=== PATIENT | female | born 1995 | race Hispanic/Latino ===

== ENCOUNTER 2017-08-02 17:02 | Emergency (ER) | payer MEDICAID ==
[2017-08-02 17:58] LABS: HCG,QUAL RESULT NEGATIVE (NEGATIVE)
[2017-08-02 17:59] LABS: APPEARANCE,URINE SLIGHTLY CLOUDY (CLEAR); BILIRUBIN,URINE Negative (NEGATIVE); COLOR,URINE Yellow (YELLOW); GLUCOSE, URINE (UA) Negative (NEGATIVE); KETONES,URINE Negative (NEGATIVE); LEUKOCYTE ESTERASE ,URINE Negative (NEGATIVE); NITRATE,URINE Negative (NEGATIVE); OCCULT BLOOD,URINE Large (NEGATIVE); PH,URINE 5.5 (5.0-8.0); PROTEIN,URINE Negative (NEGATIVE)
[2017-08-02 18:05] LABS: BACTERIA,URINE None Seen /HPF (None Seen); MUCUS,URINE Many LPF (None Seen); RBC,URINE 26-50 /HPF (0-1); SQUAMOUS EPITHELIAL CELL,UR 0-2 /LPF (0-2); WBC,URINE None Seen /HPF (0-1)
[2017-08-02 18:16] LABS: RAPID GROUP A STREP NEGATIVE (NEGATIVE)
== END 2017-08-02 18:29 | disposition home or self-care (01) ==
LOC: EDH 17:02
DX: B34.9 Viral infection, unspecified (principal); R50.81 Fever presenting with conditions classified elsewhere; J45.909 Unspecified asthma, uncomplicated; Z98.890 Other specified postprocedural states
CPT/HCPCS: 81001; 81025; 87804; 87880

== ENCOUNTER 2020-03-09 18:03 | Observation (INO) | payer MEDICAID ==
[~2020-03-09] VITALS: Ht 157.5 cm; Wt 74.8 kg
[2020-03-09] MEDS ORDERED: LIDOCAINE HCL 1% 20 ML VIAL ONE (18:16)
[2020-03-09] MEDS ORDERED: CEFAZOLIN SODIUM 1 GM VIAL ONE (19:02)
[2020-03-09] MEDS ORDERED: SODIUM CHLORIDE 0.9% 100 ML IV ONE (19:03)
[2020-03-09] MEDS ORDERED: ACETAMINOPHEN EXTRA STRENGTH 500 MG TABLET ONE ×2 (19:03→19:09)
[2020-03-09] MEDS ORDERED: ACETAMINOPHEN-CODEINE 300/30MG TAB PO PRN ×2 (20:00)
[2020-03-09 23:09] LABS: APPEARANCE,URINE Clear (CLEAR); BILIRUBIN,URINE Negative (NEGATIVE); COLOR,URINE Yellow (YELLOW); GLUCOSE, URINE (UA) Negative (NEGATIVE); KETONES,URINE Trace mg/dL (NEGATIVE); LEUKOCYTE ESTERASE ,URINE Negative (NEGATIVE); NITRATE,URINE Negative (NEGATIVE); OCCULT BLOOD,URINE Negative (NEGATIVE); PH,URINE 6.5 (5.0-8.0); PROTEIN,URINE Negative (NEGATIVE)
[2020-03-09 23:10] LABS: HCG,QUAL RESULT NEGATIVE (NEGATIVE)
[2020-03-10] VITALS (22 sets, daily range): BP systolic 95–125; BP diastolic 52–76
[2020-03-10] MEDS ORDERED: CEFAZOLIN SODIUM 1 GM VIAL ONE (00:48)
[2020-03-10] MEDS: MORPHINE SULFATE 2 MG/ML 1ML SYG IVP PRN ×3 (00:51→17:01)
[2020-03-10] MEDS: CEFAZOLIN SODIUM 1 GM VIAL IVP SCH ×2 (03:31→10:42)
[2020-03-10 05:46] LABS: HEMATOCRIT 34.2 % (36-48); MEAN CORPUSCULAR HEMOGLOBIN 27.8 pg (27.0-33.0); MEAN CORPUSCULAR HGB CONC 32.2 g/dL (32.0-36.0); MEAN CORPUSCULAR VOLUME 86.4 fL (79-99); RED BLOOD CELL COUNT(AUTO) 3.96 MIL/uL (4.00-5.50); RED CELL DISTRIBUTION WIDTH 13.8 % (11.0-15.5); WHITE BLOOD COUNT (AUTO) 7.6 K/uL (4.8-10.8)
[2020-03-10 05:57] LABS: INR 0.93 (0.85-1.15); PARTIAL THROMBOPLASTIN TIME 27.1 SEC (26.3-35.5); PROTHROMBIN TIME 10.1 SEC (9.6-11.6)
[2020-03-10 05:59] LABS: CREATININE 0.8 mg/dL (0.5-1.5); POTASSIUM 3.5 mmol/L (3.5-5.1)
[2020-03-10] MEDS ORDERED: LIDOCAINE PF 2% 5ML ABBOJECT ONE (13:15)
[2020-03-10] MEDS ORDERED: MIDAZOLAM HCL 1 MG/ML 2ML VIAL ONE (13:15)
[2020-03-10] MEDS ORDERED: PROPOFOL 10 MG/ML 20ML VIAL IV ONE ×2 (13:15→14:17)
[2020-03-10] MEDS ORDERED: ONDANSETRON HCL 4 MG/2 ML VIAL ONE (13:16)
[2020-03-10] MEDS ORDERED: FENTANYL CITRATE PF 50 MCG/1 ML 5ML AMP IV ONE (13:16)
[2020-03-10] MEDS ORDERED: ROCURONIUM 10MG/1ML SYR 10 MG/ML ML ONE (13:16)
[2020-03-10] MEDS ORDERED: NEOMY SULF/POLYMYXIN B SULFATE 1 ML AMPUL IR ONE (17:09)
--- NOTE | 2020-03-10 21:48 | NUR ---
MET W PATIENT FOR DC PLANNING LIVES WITH SPOUSE AND FMAILY IS INDEPENDENT AND DRIVES, HAS NO DME FEELS CONFIDENT FAMILY CAN PROVIDE ANY CARE NEEDED DCP HOME
== END 2020-03-10 19:39 | disposition home or self-care (01) ==
LOC: EDH 18:03 → EDHIP 18:04 → 3BH 03-10 00:27
PROVIDERS: ADMIT Surgery Plastic and Reconstructive Surgery; ATTEND Surgery Plastic and Reconstructive Surgery
DX: S66.324A Laceration of extensor muscle, fascia and tendon of right ring finger at wrist and hand level, initial encounter (principal); Z20.828 Contact with and (suspected) exposure to other viral communicable diseases; J45.909 Unspecified asthma, uncomplicated; W25.XXXA Contact with sharp glass, initial encounter; Y93.89 Activity, other specified; Y92.009 Unspecified place in unspecified non-institutional (private) residence as the place of occurrence of the external cause
CPT/HCPCS: 26418; 36415; 73130; 80048; 81003; 81025; 85027; 85610; 85730; 87426; 96374; 96375; 96376; 99284; A4649; G0168; G0378 ×7; J0690 ×3; J2001; J2250; J2405; J2704 ×2; J3010; J3490; Q4050; U0003

== ENCOUNTER 2020-03-16 23:48 | Emergency (ER) | payer MEDICAID ==
[2020-03-17] MEDS ORDERED: HYDROXYZINE HCL 25 MG TABLET ONE (00:18)
== END 2020-03-17 00:23 | disposition home or self-care (01) ==
LOC: EDH 23:48
DX: F43.0 Acute stress reaction (principal); R06.4 Hyperventilation; J45.909 Unspecified asthma, uncomplicated; F32.9 Major depressive disorder, single episode, unspecified

== ENCOUNTER 2020-04-11 22:50 | Emergency (ER) | payer MEDICAID ==
[2020-04-11] MEDS ORDERED: ONDANSETRON HCL 4 MG/2 ML VIAL ONE (23:46)
[2020-04-11] MEDS ORDERED: ACETAMINOPHEN EXTRA STRENGTH 500 MG TABLET ONE (23:46)
[2020-04-11] MEDS ORDERED: SODIUM CHLORIDE 0.9% 1000ML 1,000 ML IV ONE (23:47)
[2020-04-12 00:49] LABS: BASOPHILS % (AUTO) 0.4 % (0.0-5.0); EOSINOPHILS % (AUTO) 0.5 % (0.0-8.0); HEMATOCRIT 37.5 % (36-48); LYMPHOCYTES % (AUTO) 24.6 % (21.0-51.0); MEAN CORPUSCULAR HEMOGLOBIN 28.8 pg (27.0-33.0); MEAN CORPUSCULAR HGB CONC 33.9 g/dL (32.0-36.0); MONOCYTES % (AUTO) 7.3 % (3.0-13.0); NEUTROPHILS % (AUTO) 66.9 % (40.0-77.0); PLATELET COUNT (AUTO) 251 K/uL (130-400); RED BLOOD CELL COUNT(AUTO) 4.41 MIL/uL (4.00-5.50); RED CELL DISTRIBUTION WIDTH 13.3 % (11.0-15.5); WHITE BLOOD COUNT (AUTO) 11.3 K/uL (4.8-10.8)
[2020-04-12 00:51] LABS: BILIRUBIN,URINE Negative (NEGATIVE); GLUCOSE, URINE (UA) Negative (NEGATIVE); KETONES,URINE >=160 mg/dL (NEGATIVE); LEUKOCYTE ESTERASE ,URINE Trace (NEGATIVE); NITRATE,URINE Negative (NEGATIVE); OCCULT BLOOD,URINE Negative (NEGATIVE); PH,URINE 5.5 (5.0-8.0); PROTEIN,URINE Trace mg/dL (NEGATIVE); UROBILINOGEN,URINE 0.2 mg/dL (0.2-1.0)
[2020-04-12 00:52] LABS: APPEARANCE,URINE HAZY (CLEAR); COLOR,URINE YELLOW (YELLOW)
[2020-04-12 00:59] LABS: CREATININE 0.7 mg/dL (0.5-1.5); POTASSIUM 3.5 mmol/L (3.5-5.1)
[2020-04-12 01:01] LABS: BACTERIA,URINE Few /HPF (None Seen); RBC,URINE 0-1 /HPF (0-1); YEAST,URINE BUDDING Few /HPF (None Seen)
[2020-04-12 01:02] LABS: MUCUS,URINE Moderate LPF (None Seen)
[2020-04-12 01:04] LABS: ALBUMIN 3.6 g/dL (3.5-5.0); BILIRUBIN,TOTAL 1.9 mg/dL (0.2-1.0)
[2020-04-12] MEDS ORDERED: HYOSCYAMINE SULFATE 0.125 MG TAB.SUBL SL ONE (01:25)
[2020-04-12] MEDS ORDERED: METOCLOPRAMIDE 10 MG/2 ML VIAL ONE (01:25)
[2020-04-12] MEDS ORDERED: DEXTROSE 5%-LACTATED RINGERS 1,000 ML IV ONE (01:26)
== END 2020-04-12 01:59 | disposition home or self-care (01) ==
LOC: EDH 22:50
DX: O20.0 Threatened abortion (principal); O21.8 Other vomiting complicating pregnancy; O99.281 Endocrine, nutritional and metabolic diseases complicating pregnancy, first trimester; E86.0 Dehydration; Z48.02 Encounter for removal of sutures; O99.511 Diseases of the respiratory system complicating pregnancy, first trimester; J45.909 Unspecified asthma, uncomplicated; F31.9 Bipolar disorder, unspecified; F41.9 Anxiety disorder, unspecified; F43.10 Post-traumatic stress disorder, unspecified; Z3A.08 8 weeks gestation of pregnancy
CPT/HCPCS: 36415; 76801; 80053; 81001; 84702; 85025; 86850; 86900; 86901; 96361; 96374; 96375; 99284; J2405; J2765; J3490; J7030

== ENCOUNTER 2020-10-25 02:43 | Observation (INO) | payer MEDICAID ==
[~2020-10-25] VITALS: Ht 157.5 cm; Wt 75.7 kg
[2020-10-25 02:46] VITALS: BP 91/57
[2020-10-25] MEDS ORDERED: LACTATED RINGERS 1000ML IV PRN (03:00)
[2020-10-25] MEDS ORDERED: PREN1TAB80 PO (03:02)
[2020-10-25 03:26] LABS: APPEARANCE,URINE Cloudy (CLEAR); BILIRUBIN,URINE Negative (NEGATIVE); COLOR,URINE Yellow (YELLOW); GLUCOSE, URINE (UA) Negative (NEGATIVE); KETONES,URINE 15 mg/dL (NEGATIVE); LEUKOCYTE ESTERASE ,URINE Moderate (NEGATIVE); NITRATE,URINE Negative (NEGATIVE); OCCULT BLOOD,URINE Negative (NEGATIVE); PH,URINE 6.5 (5.0-8.0); PROTEIN,URINE POS 1+ mg/dL (NEGATIVE)
[2020-10-25 03:34] LABS: AMPHET/METH SCREEN,URINE NEGATIVE (NEGATIVE); BARBITURATE SCREEN, URINE NEGATIVE (NEGATIVE); BENZODIAZEPINES SCREEN,URINE NEGATIVE (NEGATIVE); CANNABINOID SCREEN,URINE NEGATIVE (NEGATIVE); COCAINE SCREEN,URINE NEGATIVE (NEGATIVE); OPIATE SCREEN,URINE NEGATIVE (NEGATIVE); PHENCYCLIDINE SCREEN,URINE NEGATIVE (NEGATIVE)
[2020-10-25 03:53] LABS: BACTERIA,URINE Rare /HPF (None Seen); SQUAMOUS EPITHELIAL CELL,UR Many /HPF (0-2)
[2020-10-25] MEDS ORDERED: LACTATED RINGERS 1000ML 1,000 ML IV SCH ×2 (04:30)
[2020-10-25] MEDS ORDERED: LACTATED RINGERS 1000ML 1,000 ML IV PRN (05:15)
[2020-10-25] MEDS ORDERED: OXYTOCIN-LR 20 UNITS/1000 ML 1,000 ML IV SCH (05:15)
[2020-10-25] MEDS ORDERED: AMPICILLIN 2GM+NS 100ML 100 ML IV SCH (05:15)
[2020-10-25 05:19] LABS: HEMATOCRIT 31.9 % (36-48); MEAN CORPUSCULAR HEMOGLOBIN 25.1 pg (27.0-33.0); PLATELET COUNT (AUTO) 195 K/uL (130-400); RED BLOOD CELL COUNT(AUTO) 3.94 MIL/uL (4.00-5.50); RED CELL DISTRIBUTION WIDTH 15.9 % (11.0-15.5); WHITE BLOOD COUNT (AUTO) 7.7 K/uL (4.8-10.8)
[2020-10-25] MEDS ORDERED: CELESTONE SOLUSPAN 6 MG/ML 5ML VIAL IM SCH (05:45)
[2020-10-25] MEDS ORDERED: TERBUTALINE SULFATE VIAL 1MG/ML SQ SCH ×2 (05:45)
[2020-10-25 07:50] LABS: RAPID PLASMA REAGIN NONREACTIVE (NONREACTIVE)
[2020-10-25] MEDS ORDERED: AMPICILLIN 1GM+NS 50ML 50 ML IV SCH (09:45)
[2020-10-26 07:20] LABS: HEPATITIS Bs ANTIGEN SCREEN P Negative (Negative)
== END 2020-10-25 07:05 | disposition home or self-care (01) ==
LOC: EDH 02:43 → INTOOBSV 02:44 → LDH 02:44 → OBSVTOIN 02:44
PROVIDERS: ADMIT Obstetrics & Gynecology; ATTEND Obstetrics & Gynecology
DX: O42.913 Preterm premature rupture of membranes, unspecified as to length of time between rupture and onset of labor, third trimester (principal); Z3A.36 36 weeks gestation of pregnancy; O62.9 Abnormality of forces of labor, unspecified
CPT/HCPCS: 36415; 59025; 76805; 76819; 80305; 81001; 85027; 86592; 86701; 86850; 86900; 86901; 87088; 87340; 87390; 96361; 96365; G0378 ×4; J0290; J0702; J3105; J7120; 96360

== ENCOUNTER 2020-10-26 01:17 | Observation (INO) | payer MEDICAID ==
[~2020-10-26] VITALS: Ht 157.5 cm; Wt 82.6 kg
[~2020-10-26 01:17] MED LIST: PREN1TAB80 PO
[2020-10-26 01:20] VITALS: BP 105/60
[2020-10-26 01:42] VITALS: BP 103/63
[2020-10-26 01:54] LABS: APPEARANCE,URINE Clear (CLEAR); BILIRUBIN,URINE Negative (NEGATIVE); COLOR,URINE Yellow (YELLOW); GLUCOSE, URINE (UA) 500 mg/dL (NEGATIVE); KETONES,URINE 40 mg/dL (NEGATIVE); LEUKOCYTE ESTERASE ,URINE Trace (NEGATIVE); NITRATE,URINE Negative (NEGATIVE); OCCULT BLOOD,URINE Negative (NEGATIVE); PROTEIN,URINE POS 1+ mg/dL (NEGATIVE)
[2020-10-26 02:06] LABS: AMPHET/METH SCREEN,URINE NEGATIVE (NEGATIVE); BARBITURATE SCREEN, URINE NEGATIVE (NEGATIVE); BENZODIAZEPINES SCREEN,URINE NEGATIVE (NEGATIVE); CANNABINOID SCREEN,URINE NEGATIVE (NEGATIVE); COCAINE SCREEN,URINE NEGATIVE (NEGATIVE); OPIATE SCREEN,URINE NEGATIVE (NEGATIVE); PHENCYCLIDINE SCREEN,URINE NEGATIVE (NEGATIVE)
[2020-10-26 02:07] LABS: BACTERIA,URINE Few /HPF (None Seen); RBC,URINE 0-1 /HPF (0-1)
== END 2020-10-26 02:45 | disposition home or self-care (01) ==
LOC: EDH 01:17 → LDH 01:18
PROVIDERS: ADMIT Obstetrics & Gynecology; ATTEND Obstetrics & Gynecology
DX: O62.9 Abnormality of forces of labor, unspecified (principal); O46.93 Antepartum hemorrhage, unspecified, third trimester; Z3A.37 37 weeks gestation of pregnancy
CPT/HCPCS: 59025; 80305; G0378

== ENCOUNTER 2021-04-08 11:52 | Emergency (ER) | payer MEDICAID ==
[~2021-04-08] VITALS: Ht 157.5 cm; Wt 78.9 kg
[2021-04-08 11:53] VITALS: BP 104/41
[2021-04-08 12:25] LABS: BASOPHILS % (AUTO) 0.4 % (0.0-5.0); EOSINOPHILS % (AUTO) 1.1 % (0.0-8.0); HEMATOCRIT 37.3 % (36-48); LYMPHOCYTES % (AUTO) 28.2 % (21.0-51.0); MEAN CORPUSCULAR HEMOGLOBIN 28.7 pg (27.0-33.0); MEAN CORPUSCULAR VOLUME 87.1 fL (79-99); MONOCYTES % (AUTO) 7.9 % (3.0-13.0); NEUTROPHILS % (AUTO) 62.2 % (40.0-77.0); PLATELET COUNT (AUTO) 234 K/uL (130-400); RED BLOOD CELL COUNT(AUTO) 4.28 MIL/uL (4.00-5.50); RED CELL DISTRIBUTION WIDTH 13.7 % (11.0-15.5); WHITE BLOOD COUNT (AUTO) 8.3 K/uL (4.8-10.8)
[2021-04-08 12:32] LABS: CREATININE 0.9 mg/dL (0.5-1.5); POTASSIUM 3.6 mmol/L (3.5-5.1)
[2021-04-08 12:36] LABS: ALBUMIN 3.5 g/dL (3.5-5.0); BILIRUBIN,TOTAL 0.5 mg/dL (0.2-1.0)
[2021-04-08] MEDS ORDERED: HYDR-3421 PO (13:16)
== END 2021-04-08 13:53 | disposition home or self-care (01) ==
LOC: EDH 11:52
DX: F41.9 Anxiety disorder, unspecified (principal); R06.00 Dyspnea, unspecified; J45.909 Unspecified asthma, uncomplicated; Z20.822 Contact with and (suspected) exposure to COVID-19
CPT/HCPCS: 36415; 71045; 80053; 81025; 84484; 85025; 87635; 93005; 99285; C9803

== ENCOUNTER 2023-09-03 12:57 | Emergency (ER) | payer MEDICAID, OTHER ==
[~2023-09-03] VITALS: Ht 157.5 cm; Wt 79.4 kg
[~2023-09-03 12:57] MED LIST changes: +HYDR-3421 PO
[2023-09-03 13:05] VITALS: BP 130/86; PULSE 96; RESP 16
== END 2023-09-03 14:22 | disposition left against medical advice (07) ==
LOC: EDH 12:57
DX: R42 Dizziness and giddiness (principal); F41.9 Anxiety disorder, unspecified; J45.909 Unspecified asthma, uncomplicated
CPT/HCPCS: 93005

== ENCOUNTER 2024-09-02 21:18 | Emergency (ER) | payer MEDICAID ==
[~2024-09-02] VITALS: Ht 157.5 cm; Wt 81.2 kg
[2024-09-02 21:18] VITALS: BP 126/77; PULSE 104; RESP 20; TEMP 99.4
--- NOTE | 2024-09-02 21:25 | NUR ---
DR HIDALGO CALLED, NO ANSWER
--- NOTE | 2024-09-02 21:27 | NUR ---
UA CUP PROVIDED
--- NOTE | 2024-09-02 21:47 | NUR ---
DR HIDALGO CALLED, NO ANSWER
--- NOTE | 2024-09-02 22:00 | NUR ---
CALLED BY DR HIDALGO, NO ANSWER
--- NOTE | 2024-09-02 22:13 | NUR ---
CALLED BY DR HIDALGO NO ANSWER
--- NOTE | 2024-09-02 22:31 | NUR ---
CALLED , NO ANSWER, NOT IN LOBBY, NOT IN RESTROOM
== END 2024-09-02 22:32 | disposition left against medical advice (07) ==
LOC: EDH 21:18
DX: R50.9 Fever, unspecified (principal); R06.02 Shortness of breath; R07.89 Other chest pain; R00.0 Tachycardia, unspecified; Z53.21 Procedure and treatment not carried out due to patient leaving prior to being seen by health care provider